=== PATIENT | female | born 1955 | race Caucasian/White ===

== ENCOUNTER 2018-11-10 14:56 | Emergency (ER) | payer OTHER ==
[~2018-11-10] VITALS: Ht 170.2 cm; Wt 92.5 kg
[2018-11-10] MEDS ORDERED: ZOCOR20 MG PO (15:35)
[2018-11-10] MEDS ORDERED: PRINIVIL20 MG PO (15:35)
[2018-11-10] MEDS ORDERED: BUPROPION HCL75 MG PO (15:35)
[2018-11-10] MEDS ORDERED: PRAMIPEXOLE0.375 MG PO (15:36)
[2018-11-10] MEDS ORDERED: CHILDREN'S ASPI81 MG PO (15:36)
[2018-11-10] MEDS ORDERED: CELEXA20 MG PO (15:36)
== END 2018-11-10 18:05 | disposition home or self-care (01) ==
LOC: ER 14:56
DX: H57.89 Other specified disorders of eye and adnexa (principal)